=== PATIENT | male | born 1955 | race Caucasian/White ===

== ENCOUNTER → 2016-10-09 | Day surgery (SDC) | payer BC ==
[~2016-10-09] VITALS: Ht 190.5 cm; Wt 97.1 kg
[~2016-10-09] MED LIST: DURAGESIC 25MC25 MCG TOP; FISH OIL CONCE1 EAC1 PO; KLONOPIN1 MG PO; NORCO 5-325 TA1 EACH PO; PANTOPRAZOLE SO40 MG PO; PRINCIPEN 250250 MG PO; PROTONIX40 MG PO
== END | disposition disaster alternative care site (69) ==
LOC: GPOC 10-07 14:00 → GEND 06:46 → GPOC 07:00
PROC: 0DC98ZZ Extirpation of Matter from Duodenum, Via Natural or Artificial Opening Endoscopic (ICD-10-PCS; principal; 2016-10-09)
DX: Z46.59 Encounter for fitting and adjustment of other gastrointestinal appliance and device (principal); E78.5 Hyperlipidemia, unspecified; G25.81 Restless legs syndrome; Z85.46 Personal history of malignant neoplasm of prostate; Z90.49 Acquired absence of other specified parts of digestive tract; Z92.3 Personal history of irradiation; Z98.890 Other specified postprocedural states
CPT/HCPCS: J2001; J7030